=== PATIENT | female | born 1945 ===

== ENCOUNTER 2017-08-22 08:29 | Outpatient (CLI) | payer MEDICAID, MEDICARE ==
--- NOTE | 2017-08-22 09:46 | XRay Report ---
Lumbar spine: Pain. Large bridging spurs are present throughout the lumbar spine. There is posterior spondylosis at multiple levels. The vertebral height and alignment appears intact. The interspaces appear generally preserved and the bones are well-mineralized. There is no compression fracture. Impressions: Extensive spondylosis.
== END 2017-08-22 08:30 | disposition home or self-care (01) ==
LOC: SPVIMAG 08:29
PROVIDERS: ATTEND Orthopaedic Surgery Sports Medicine
DX: M47.896 Other spondylosis, lumbar region (principal)
CPT/HCPCS: 72100